=== PATIENT | female | born 1975 | race Caucasian/White ===

== ENCOUNTER 2016-06-06 12:39 | Emergency (ER) | payer OTHER ==
[2016-06-06] MEDS ORDERED: DIPH/PERTUSS(ACELL)/TETANUS VAC/PF 0.5 ML SYR (>=10YO) IM ONE (13:08)
[2016-06-06] MEDS ORDERED: CEPHALEXIN 500 MG CAPSULE PO ONE (13:11)
--- NOTE | 2016-06-06 13:20 | ER Document Report ---
HPI - HPI Patient complains to provider of: laceration Pain Level: 2 Context: Patient is a 41-year-old female presented emergency Department complaining of left middle finger laceration. Patient states that she works at a [employer] and she was using fozia to cut someone's hair and she got her finger. Patient states that her tetanus shot is not up-to-date. Full sensation in the tip of her finger with minimal bleeding but responds well to pressure. She is not on blood thinners. Denies any other previous medical history. Admits she is allergic to Benadryl and latex - DERM Skin Color: Normal Past Medical History - Social History Smoking Status: Unknown if Ever Smoked Family History: Reviewed & Not Pertinent Patient has suicidal ideation: No Patient has homicidal ideation: No Renal/ Medical History: Denies: Hx Peritoneal Dialysis Vertical Provider Document - CONSTITUTIONAL Agree With Documented VS: Yes Exam Limitations: No Limitations General Appearance: WD/WN - INFECTION CONTROL TRAVEL OUTSIDE OF THE [place] IN LAST 30 DAYS: No - CARDIOVASCULAR Pulses: Normal: Radial Notes: Capillary refill less than 2 seconds in all upper extremity digits - MUSCULOSKELETAL/EXTREMETIES Musculoskeletal/Extremeties: MAEW, FROM, Non-Tender, No Edema. negative: Eccymosis - NEURO Level of Consciousness: Awake, Alert, Appropriate Motor/Sensory: No Motor Deficit, No Sensory Deficit - DERM Integumentary: Laceration - 1-1/2 cm laceration on the fat pad of the finger and another separate one and half centimeter laceration on the lateral aspect of the fat pad. Both are superficial and do not extend into the dermis Course - Re-evaluation Re-evalutation: 06/06/16 14:09 Patient is a 41-year-old female presents with a superficial laceration that does not involve the dermis. The site was irrigated with Betadine and saline and dressed with Steri-Strips. Educated patient on nonsutured laceration care and told her to follow up with her primary care provider Discharge - Discharge Clinical Impression: Laceration Condition: Good Disposition: HOME, SELF-CARE Instructions: Antibiotic Ointment Protection ([facility]), Soap Cleansing ([facility]), Tetanus Immunization Given ([facility]), Prophylactic Antibiotic ([facility]), Non-Sutured Laceration ([facility]) Prescriptions: Cephalexin Monohydrate [Keflex 500 mg Capsule] 500 mg PO BID 7 Days Forms: Return to Work
[2016-06-06 14:00] VITALS: BP 165/107
== END 2016-06-06 14:03 | disposition home or self-care (01) ==
LOC: ER 12:39
DX: S61.213A Laceration without foreign body of left middle finger without damage to nail, initial encounter (principal); W27.2XXA Contact with scissors, initial encounter; Y93.E8 Activity, other personal hygiene; Y92.215 Trade school as the place of occurrence of the external cause; Z23 Encounter for immunization
CPT/HCPCS: 90471; 90715; 99282